=== PATIENT | female | born 1995 | race Caucasian/White ===

== ENCOUNTER 2019-10-09 11:28 | Emergency (ER) | payer OTHER ==
[2019-10-09 11:37] VITALS: BMI 30.7
--- NOTE | 2019-10-09 12:15 | PDOC ---
History of Present Illness - General Chief Complaint: Vaginal Bleeding Stated Complaint: VAGINAL BLEEDING Time Seen by Provider: 10/09/19 12:13 History Source: Patient, Significant Other (Boyfriend present at bedside.), Old Records Exam Limitations: No Limitations - History of Present Illness Initial Comments: HPI: 24 y/o female presenting to [facility] ER complaining of blood on toilet paper when wiping with mild intermittent lower abdominal cramping. First noted this morning. Denies noticing blood in underwear. Discovered she was last week. Underwent outpatient U/S on Thursday, which showed IUP at estimated 5 weeks 5 days. No cardiac activity noted. Also noted possible partial molar . Pt has not been informed of these results. Scheduled to f/u with OB on Thursday. OBGYN: Dr. Warner OBG[facility]on Hx: - LMP 10 Aug 2019 - G 2, T 1, P 0, A 0, L 1 - Last PAP Smear Last Thursday. No h/o of abdominal results. - H/o STDs Remote h/o BV. - Feels safe in her relationship. Denies concerns for safety or well being. Medical Hx: - Denies past medical history. Denies prescription medications. Surgical Hx: - Review of Systems: In addition to that documented in the HPI above, the additional ROS was obtained : Constitutional- Denies fevers or chills ENMT- Denies sore throat CV- Denies chest pain Resp- Denies SOB GI- Denies vomiting or diarrhea - Denies dysuria or urinary frequency Physical Examination: Vital signs and nursing notes reviewed. Constitutional- Well-developed, well-nourished adult female in no acute distress or obvious discomfort. Found semi-fowlers on GLACIOLOGIST exam table. Answered all questions appropriately and completely. Head- Normocephalic. No obvious external signs of trauma. Eyes- Sclerae white. Conjunctiva moist and not injected. Neck- Supple, trachea is midline. Cardiovascular / Chest- Regular rate and regular rhythm. No murmur, rubs, clicks , or gallops. Peripheral pulses- radial pulses full. Respiratory- Breathing unlabored. Equal chest rise and fall. Clear to auscultation bilaterally. No stridor, no wheezing, no rhonchi. Gastrointestinal- abdomen is soft, non-tender, non-distended. Female Pelvic: External genitalia unremarkable. Speculum exam revealed clotted material without active bleeding. Vaginal wall mucosa is unremarkable. Cervix visualized. Noted small amount of bloody mucous protruding from OS. Bimanual exam without cervical motion tenderness, OS closed, no adnexal tenderness or any masses appreciated. RN chaperoned exam. Neuro- Alert and oriented x4. Moving all four extremities spontaneously. Skin- Warm, dry, and intact. Psych- Affect- appropriate. Mood- normal. Speech was non-labored, non- pressured. 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 Afebrile. Vitals unremarkable for hypotension or tachycardia. Physical exam as described above. No anemia. TVUS unchanged from Thursday. No indication for RhoGam. Will discuss findings with pt's OBGYN. 09 Oct 2019 14:48 PM Telephone discussion with Dr. Warner. Verbally appraised of the pts HPI, ED course, and current plan of management. Reported he was aware of the possible molar , and that the pt is scheduled for a D&C on Thursday. Would like the pt to call his office tomorrow morning to schedule a sooner f/u appt. Pt reported to ED Attending that she was already planning to terminate the . Kamar Fischer M.D., PGY2 Emergency Medicine Resident Past History - Past Medical History Allergies/Adverse Reactions: Allergies Allergy/AdvReac Type Severity Reaction Status Date / Time No Known Allergies Allergy Verified 10/09/19 11:37 COPD: No - Psycho Social/Smoking Cessation Hx Smoking History: Never smoked *Physical Exam - Vital Signs Last Vital Signs Temp Pulse Resp BP Pulse Ox 98.6 F 100 H 18 115/69 99 10/09/19 11:34 10/09/19 11:34 10/09/19 11:34 10/09/19 11:34 10/09/19 11:34 ED Treatment Course - LABORATORY CBC & Chemistry Diagram: 10/09/19 12:45 10/09/19 12:45 Discharge - Discharge Information Problems reviewed: Yes Clinical Impression/Diagnosis: Vaginal bleeding before 22 weeks gestation Condition: Good Disposition: HOME - Admission No - Follow up/Referral Referrals: Ac Warner MD [Staff Physician] - CallBack Reminder: Urine Culture - Patient Discharge Instructions Patient Printed Discharge Instructions: DI for Vaginal Bleeding During Additional Instructions: You were seen today for vaginal bleeding. Your ultrasound was unchanged from Thursday. You likely have an abnormal that is not compatible with life. I called and discussed your results with Dr. Warner. He would like you to call his office tomorrow morning between 11am - 12pm to schedule a sooner appointment. All of todays results are in this packet. Take it with you so your doctor can review them. You may continue to have a small amount of bleeding over the next day or so. You can take over the counter Tylenol or Advil as needed for pain. Take as directed on the package insert. Do not exceed the recommended dosage. Go to the nearest emergency department if your condition worsens or you feel like you need additional emergency evaluation. Print Language: CROATIAN - Post Discharge Activity Work/Back to School Note: Back to Work
[2019-10-09 13:18] LABS: BASO % 0.5 % (0-2.0); EOS % 2.5 % (0-4.5); HEMATOCRIT 40.5 % (32.4-45.2); HEMOGLOBIN 13.4 GM/dL (10.7-15.3); MCH 26.6 pg (25.7-33.7); MCHC 33.1 g/dl (32.0-36.0); MEAN CELL VOLUME 80.3 fl (80-96); MEAN PLT VOLUME 8.4 fl (7.5-11.1); MONO % 7.6 % (3.8-10.2); NEUT % 64.4 % (42.8-82.8); PLATELET COUNT 274 K/MM3 (134-434); RBC 5.05 M/mm3 (3.60-5.2); RDW 14.5 % (11.6-15.6); WHITE BLOOD COUNT 7.8 K/mm3 (4.0-10.0)
[2019-10-09 14:04] LABS: BILIRUBIN,TOTAL 0.4 mg/dL (0.2-1); CREATININE 0.6 mg/dL (0.55-1.3); TOT PROT 7.6 g/dl (6.4-8.2)
[2019-10-09 14:17] LABS: BLOOD UREA NITROGEN 9.4 mg/dL (7-18)
[2019-10-09 14:28] LABS: EPI CELLS 4.2 /HPF (0-5/HPF); HYALINE CASTS 9 /lpf (0-8); PH,URINE 6.5 (5.0-8.0); URINE APPEARANCE CLOUDY; URINE BACTERIA 108.1 /hpf (NEGATIVE); URINE BILIRUBIN NEGATIVE (NEGATIVE); URINE COLOR YELLOW; URINE GLUCOSE (UA) NEGATIVE (NEGATIVE); URINE KETONE NEGATIVE (NEGATIVE); URINE LEUK ESTERASE NEGATIVE (NEGATIVE); URINE NITRITE NEGATIVE (NEGATIVE); URINE PROTEIN NEGATIVE (NEGATIVE); URINE UROBILINOGEN 0.2 mg/dL (0.2-1.0); URINE WBC 7 /hpf (0-5)
--- NOTE | 2019-10-09 16:14 | PDOC ---
Documentation entered by Sotero Bro SCRIBE, acting as scribe for Chris Rivera MD. Chris Rivera MD: This documentation has been prepared by the Dieudonne zamora Daniel, SCRIBE, under my direction and personally reviewed by me in its entirety. I confirm that the documentation accurately reflects all work, treatment, procedures, and medical decision making performed by me. Attending Attestation - Resident Resident Name: FischerKamar - ED Attending Attestation I have performed the following: I have examined & evaluated the patient, The case was reviewed & discussed with the resident, I agree w/resident's findings & plan, Exceptions are as noted - HPI HPI: 10/09/19 13:37 The patient is a 24 year old , @ 5 wks , female with no past medical history here today for evaluation of vaginal bleeding. The patient reports that she noticed some blood when she wiped this morning. She also notes some spotting on her underwear and light abdominal cramping. Pt is scheduled for D&C with Dr. Warner for elective this week. Patient denies headache, lightheadedness. Denies fever, chills. Denies chest pain, shortness of breath. Denies nausea, vomiting, diarrhea. Allergies: NKA - Physicial Exam PE: 10/09/19 13:37 GENERAL: Awake, alert, and fully oriented, in no acute distress. HEAD: No signs of trauma EYES: PERRLA, EOMI, sclera anicteric, conjunctiva clear ENT: Auricles normal inspection, hearing grossly normal, nares patent, oropharynx clear without exudates. Moist mucosa NECK: Nontender, no stepoffs, Normal ROM, supple, no lymphadenopathy, JVD, or masses LUNGS: Breath sounds equal, clear to auscultation bilaterally. No wheezes, and no crackles HEART: Regular rate and rhythm, normal S1 and S2, no murmurs, rubs or gallops ABDOMEN: Soft, nontender, normoactive bowel sounds. No guarding, no rebound. No masses EXTREMITIES: Normal range of motion, no edema. No clubbing or cyanosis. No cords, erythema, or tenderness NEUROLOGICAL: Cranial nerves II through XII intact. 5/5 strength and sensation in all extremities, Normal speech, normal gait, normal cerebellar function SKIN: Warm, Dry, normal turgor, no rashes or lesions noted. - Medical Decision Making 10/09/19 15:02 24 F with vaginal spotting. Outpt US shows IUP with partial molar . Confirmed on repeat US today. - Labs unremarkable - Discussed with Dr. Warner, who recommends proceeding with D&C as scheduled this week Pt is well appearing, with normal vitals. Clinically stable for DC at this time. I discussed the physical exam findings, ancillary test results and final diagnoses with the patient. I answered all of the patient's questions. The patient was satisfied with the care received and felt comfortable with the discharge plan and treatment plan. The patient agrees to follow up with the primary care physician within 24-72 hours.
[2019-10-09 16:36] VITALS: BP 119/73; PULSE 85; TEMP 98.1
== END 2019-10-09 16:00 | disposition home or self-care (01) ==
LOC: JER 11:28
DX: O26.891 Other specified pregnancy related conditions, first trimester (principal); O20.8 Other hemorrhage in early pregnancy; Z3A.01 Less than 8 weeks gestation of pregnancy
CPT/HCPCS: 36415; 76817-TC; 80053; 81003; 84702; 84703; 85025; 86850; 86900; 86901; 87086; 87186; 99284-25

== ENCOUNTER 2019-10-12 10:59 | Day surgery (SDC) | payer OTHER ==
[2019-10-11 15:28] VITALS: BMI 30.7
[2019-10-12] MEDS ORDERED: METHYLERGONOVINE MALEATE 0.2 MG/1 ML AMP IM ONE ×2 (14:00→15:25)
[2019-10-12] MEDS ORDERED: LIDOCAINE HCL/PF 2% SDV 5ML VIAL ONE (14:34)
[2019-10-12] MEDS ORDERED: PROPOFOL 20 ML ONE (14:34)
[2019-10-12] MEDS ORDERED: MIDAZOLAM HCL 2 MG/2 ML SINGLE DOSE VIAL ONE (14:34)
[2019-10-12] MEDS ORDERED: DEXAMETHASONE SOD PHOSPHATE 4 MG/1 ML VIAL ONE (15:08)
[2019-10-12] MEDS ORDERED: OXYTOCIN 10 UNITS/ML VIAL ONE (15:08)
[2019-10-12] MEDS ORDERED: KETOROLAC TROMETHAMINE 30 MG/1 ML VIAL ONE (15:18)
--- NOTE | 2019-10-12 15:28 | OP ---
Operative Note - Note: Operative Date: 10/12/19 Pre-Operative Diagnosis: Missed ab. Partial mole. Operation: Suction D and C. Post-Operative Diagnosis: Same as Pre-op Surgeon: Ac Warner Anesthesia: General Estimated Blood Loss (mls): 10 Operative Report Dictated: Yes
[2019-10-12] MEDS ORDERED: oxyCODONE HCL 5 MG TABLET PO PRN (15:37)
[2019-10-12] MEDS ORDERED: ONDANSETRON 4 MG/2 ML VIAL IVPUSH PRN (15:37)
[2019-10-12] MEDS ORDERED: PROMETHAZINE HCL 25 MG/1 ML VIAL IVPUSH PRN (15:37)
[2019-10-12] MEDS ORDERED: LACTATED RINGERS SOLUTION 1,000 ML IV SCH (15:45)
--- NOTE | 2019-10-12 16:33 | OP ---
DATE OF OPERATION: DATE OF DICTATION: 10/12/2019 PREOPERATIVE DIAGNOSES: Missed . Partial hydatidiform mole. POSTOPERATIVE DIAGNOSES: Missed . Partial hydatidiform mole. PROCEDURE: Suction dilatation and curettage. SURGEON: Becky Warner MD ANESTHESIA: ; general with LMA. PROCEDURE AND FINDINGS: Patient was placed under general anesthesia in dorsal lithotomy position. Oxytocin infusion started. Patient was examined. The uterus was noted to be about 8-weeks'-gestational size. A routine prep and drape was carried out. Cervix was grasped with tenaculum and gently dilated with minimal resistance. Using suction curette No. 9, products of conception were removed from the cavity. With the cavity essentially empty, gentle curettage was then carried out, confirming that there were no products of conception left. Procedure was thus completed. Bleeding was minimal, no more than 10 mL. There were no complications, both with the surgery or with anesthesia. Patient was awakened and transferred to the postanesthesia unit, stable and comfortable. BECKY WARNER MD [id number]
[2019-10-12 17:52] VITALS: BP 110/70; PULSE 66; TEMP 98.4
--- NOTE | 2019-10-26 15:02 | PATH ---
Surgical Pathology Report Patient Name: JACY WOODS Med. Rec. #: [id number] /Age/Gender: 1995 (Age: 24) / F Account: [id number] Location: [facility] SUR[facility]ICAL Taken: 10/12/2019 Received: 10/13/2019 Reported: 10/26/2019 Physicians: Ac Warner MD Specimen(s) Received PRODUCTS OF CONCEPTION Clinical History Missed , partial mole Final Diagnosis PRODUCTS OF CONCEPTION, DILATION AND CURETTAGE: IMMATURE CHORIONIC VILLI WITH FOCAL HYDROPIC CHANGES. GESTATIONAL ENDOMETRIUM. NO EVIDENCE OF HYDATIDIFORM MOLE. SEE COMMENT. 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 The diagnosis above reflects the analytics consultant's opinion. See [facility] report for additional details. Electronically Signed Tori Pickett M.D. Gross Description Received in formalin labeled "products of conception," is a 7.0 x 6. 0 x 0.7 cm aggregate of singh red soft tissue fragments. Villous tissue is identified. No somatic tissue is identified. A cordage sales representative portion is submitted in one cassette. /10/13/2019 saudi10/13/2019
== END 2019-10-12 17:35 | disposition home or self-care (01) ==
LOC: JASU-SURG 10:59
PROVIDERS: ATTEND Specialist
PROC: 10D17ZZ Extraction of Products of Conception, Retained, Via Natural or Artificial Opening (ICD-10-PCS; principal; 2019-10-12 13:00)
DX: O02.1 Missed abortion (principal)
CPT/HCPCS: 88305-TC; 94760